=== PATIENT | female | born 1960 | race African-American/Black ===

== ENCOUNTER 2017-11-28 02:42 | Emergency (ER) | payer MEDICARE, OTHER ==
[~2017-11-28] VITALS: Ht 157.5 cm; Wt 69.2 kg
[~2017-11-28 02:42] MED LIST: 1-ME1LIQ PO; ALPR.25 PO; GABA100C4 PO; NOVOLOGSS SQ; ZOCO40TA PO
[2017-11-28 02:46] VITALS: BP 127/60; PULSE 104; RESP 18; TEMP 98.4; O2SAT 99
[2017-11-28 02:57] VITALS: BP 127/60; PULSE 104; RESP 18; TEMP 98.4; O2SAT 99
[2017-11-28] MEDS ORDERED: RESP: ALBUTEROL 2.5 MG/IPRATROPIUM 0.5 MG NEB (SCH) NEB ONE (03:15)
--- NOTE | 2017-11-28 03:17 | PD ---
HPI Chief Complaint: Cold / Flu Symptoms Time Seen by Provider: 02:56 Travel History International Travel<30 days: No Contact w/Intl Traveler<30days: No History of Present Illness HPI This is a 57-year-old female who presents to the emergency department with 1 hour of cough, constant, severe, associated with some rhinorrhea productive with white sputum. She denies any fevers or chills. She says this came on all of a sudden in the middle the night. She was feeling fine yesterday. She denies any chest pain and denies any leg swelling. She has a history of chronic kidney disease but denies any history of lung disease. PFSH Past Medical History Hx Anticoagulant Therapy: No Arthritis: Yes (right hip) Autoimmune Disease: No Anxiety: Yes Depression: No Cancer: No Cardiovascular Problems: Yes High Cholesterol: Yes Chemotherapy: No Diabetes: Yes Endocrine: Yes GERD: Yes Hepatitis: No Hiatal Hernia: No Hypertension: Yes Immune Disorder: No Kidney Stones: Yes (over 30 years ago) Musculoskeletal: Yes Psychiatric: Yes Respiratory: No Thyroid Disease: No Tubal Ligation: Yes Past Surgical History Gynecologic Surgery: Yes (total hysterectomy) Hysterectomy: No Pacemaker: No Social History Alcohol Use: No Tobacco Use: No Substance Use: No Allergies-Medications (Allergen,Severity, Reaction): Coded Allergies: ibuprofen (Unverified Allergy, Mild, Itching, 03/02/17) naproxen (Unverified Allergy, Mild, Itching, 03/02/17) *MDRO Multi-Drug Resistant Organism (Verified Adverse Reaction, Unknown, 05/27/15) 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 MRSA PCR Screen negative 05/26/15. Reported Meds & Prescriptions Reported Meds & Active Scripts Active Reported Lisinopril 5 Mg Tab 5 Mg PO DAILY Esomeprazole DR 40 Mg Capdr 40 Mg PO DAILY Januvia (Sitagliptin Phosphate) 50 Mg Tab 50 Mg PO DAILY Multiple Vitamin (Multivitamin with Minerals) 1 Each Tablet 1 Tab PO DAILY Amlodipine (Amlodipine Besylate) 10 Mg Tab 10 Mg PO DAILY Lyrica (Pregabalin) 100 Mg Cap 100 Mg PO BID Aspirin 81 (Aspirin) 81 Mg Tabdr 81 Mg PO DAILY Review of Systems Except as stated in HPI: all other systems reviewed are Neg Physical Exam Narrative GENERAL: Somnolent but awakens to answer questions SKIN: Focused skin assessment warm and dry. HEAD: Atraumatic. Normocephalic. EYES: Pupils equal and round. No injection or drainage. ENT: Moist mucous membranes NECK: Trachea midline. CARDIOVASCULAR: Regular rate and rhythm. No murmur appreciated. RESPIRATORY: Mild diffuse wheezing GASTROINTESTINAL: Abdomen soft, non-tender, nondistended. MUSCULOSKELETAL: No obvious deformities. NEUROLOGICAL: Awake and alert. No obvious cranial nerve deficits. Moving all extremities. PSYCHIATRIC: Appropriate mood and affect; insight and judgment normal. Data Data Last Documented VS Vital Signs Date Time Temp Pulse Resp B/P (MAP) Pulse Ox O2 Delivery O2 Flow Rate FiO2 11/28/17 03:48 99 20 97 Room Air 11/28/17 02:57 98.4 127/60 (82) Orders Orders Complete Blood Count With Diff (11/28/17 03:03) Comprehensive Metabolic Panel (11/28/17 03:03) ^ Insert Iv (11/28/17 03:03) Chest, Pa & Lat (11/28/17 ) Albuterol-Ipratropium Neb (Duoneb Neb) (11/28/17 03:15) B-Type Natriuretic Peptide (11/28/17 03:04) Labs Laboratory Tests Test 11/28/17 03:15 White Blood Count 8.4 TH/MM3 Red Blood Count 3.16 MIL/MM3 Hemoglobin 8.1 GM/DL Hematocrit 24.0 % Mean Corpuscular Volume 76.1 FL Mean Corpuscular Hemoglobin 25.7 PG Mean Corpuscular Hemoglobin Concent 33.8 % Red Cell Distribution Width 15.9 % Platelet Count 176 TH/MM3 Mean Platelet Volume 9.9 FL Neutrophils (%) (Auto) 62.6 % Lymphocytes (%) (Auto) 24.2 % Monocytes (%) (Auto) 9.9 % Eosinophils (%) (Auto) 2.9 % Basophils (%) (Auto) 0.4 % Neutrophils # (Auto) 5.4 TH/MM3 Lymphocytes # (Auto) 2.0 TH/MM3 Monocytes # (Auto) 0.8 TH/MM3 Eosinophils # (Auto) 0.2 TH/MM3 Basophils # (Auto) 0.0 TH/MM3 CBC Comment DIFF FINAL Differential Comment Blood Urea Nitrogen 36 MG/DL Creatinine 2.20 MG/DL Random Glucose 183 MG/DL Total Protein 7.4 GM/DL Albumin 3.3 GM/DL Calcium Level 8.2 MG/DL Alkaline Phosphatase 71 U/L Aspartate Amino Transf (AST/SGOT) 26 U/L Alanine Aminotransferase (ALT/SGPT) 28 U/L Total Bilirubin 0.2 MG/DL Sodium Level 142 MEQ/L Potassium Level 4.9 MEQ/L Chloride Level 113 MEQ/L Carbon Dioxide Level 22.8 MEQ/L Anion Gap 6 MEQ/L Estimat Glomerular Filtration Rate 28 ML/MIN B-Type Natriuretic Peptide 92 PG/ML MDM Medical Decision Making Medical Screen Exam Complete: Yes Emergency Medical Condition: Yes Interpretation(s) afebrile, mild tachycardia, normotensive anemia renal insufficiency similar to prior bnp normal cxr no acute process Differential Diagnosis Pneumonia, upper respiratory infection, acute asthma exacerbation, bronchitis Narrative Course This is a 57-year-old female who presents to the emergency department with onset of cough that started this evening associated with some nasal congestion. Patient was given a bronchodilator treatment. Labs were obtained which are consistent with prior. Chest x-ray is negative for pneumonia. Patient feels much better after bronchodilator treatment. She will be discharged with albuterol and codeine in the setting of likely bronchitis. Otherwise she is nontoxic appearing and appropriate for outpatient management. Diagnosis Primary Impression: Bronchitis Patient Instructions: General Instructions Additional Instructions: If you develop severe chest pain, shortness of breath, sweating, lightheadedness , dizziness or difficulty breathing return to the emergency department immediately. Followup with your primary care physician in 2-3 days if your symptoms are not resolved. Med/Other Pt SpecificInfo: Prescription(s) given Scripts Promethazine-Codeine Liq (Promethazine-Codeine Liq) 6.25-10 Mg/5 Ml Syrp 5 ML PO Q6H Y for COUGH AND/OR COLD SYMPTOMS, #50 ML 0 Refills Prov: Kathie Cuellar MD 11/28/17 Albuterol 8.5 GM Inh (Proair Hfa 8.5 GM Inh) 90 Mcg/Act Aer 2 PUFF INH Q4-6H Y for SHORTNESS OF BREATH, #1 INHALER 0 Refills 108 mcg/actuation Prov: Kathie Cuellar MD 11/28/17 Disposition: 01 DISCHARGE HOME Condition: Stable Kathie Cuellar MD November 28, 2017 03:17
[2017-11-28] MEDS ORDERED: LYRI100C PO (03:28)
[2017-11-28] MEDS ORDERED: AMLO10TA2 PO (03:28)
[2017-11-28] MEDS ORDERED: NO ITAB PO (03:28)
[2017-11-28] MEDS ORDERED: LISI-519 PO (03:28)
[2017-11-28] MEDS ORDERED: ESOM1CAP16 PO (03:28)
[2017-11-28] MEDS ORDERED: SITA50 PO (03:28)
[2017-11-28] MEDS ORDERED: ASPI1TAB57 PO (03:28)
[2017-11-28 03:41] LABS: AUTOMATED NEUTROPHIL # 5.4 TH/MM3 (1.8-7.7); BASOPHIL % 0.4 % (0.0-2.0); EOSINOPHIL # 0.2 TH/MM3 (0-0.4); EOSINOPHIL % 2.9 % (0.0-4.0); HEMOGLOBIN 8.1 GM/DL (11.6-15.3); LYMPH % 24.2 % (9.0-44.0); MEAN CELL VOLUME 76.1 FL (80.0-100.0); MEAN CORPUSCULAR HEMOGLOBIN 25.7 PG (27.0-34.0); MEAN CORPUSCULAR HGB CONC 33.8 % (32.0-36.0); MEAN PLATELET VOLUME 9.9 FL (7.0-11.0); MONO % 9.9 % (0.0-8.0); MONOCYTE # 0.8 TH/MM3 (0-0.9); NEUT % 62.6 % (16.0-70.0); PLATELET COUNT 176 TH/MM3 (150-450); RED BLOOD COUNT 3.16 MIL/MM3 (4.00-5.30); RED CELL DISTRIBUTION WIDTH 15.9 % (11.6-17.2); WHITE BLOOD COUNT 8.4 TH/MM3 (4.0-11.0)
[2017-11-28 03:47] LABS: CHLORIDE 113 MEQ/L (98-107); SODIUM (NA) 142 MEQ/L (136-145)
[2017-11-28 03:48] VITALS: PULSE 99; RESP 20; O2SAT 97
[2017-11-28 03:52] LABS: ALBUMIN 3.3 GM/DL (3.4-5.0); BICARBONATE 22.8 MEQ/L (21.0-32.0); CALCIUM 8.2 MG/DL (8.5-10.1); GLUCOSE,RANDOM 183 MG/DL (74-106)
[2017-11-28 03:53] LABS: BLOOD UREA NITROGEN 36 MG/DL (7-18)
[2017-11-28 03:55] LABS: ALT (GPT) 28 U/L (10-53)
[2017-11-28 03:56] LABS: AST (GOT) 26 U/L (15-37); GLOMERULAR FILTRATION RATE 28 ML/MIN (>89)
[2017-11-28 03:57] LABS: TOTAL BILIRUBIN ADULT 0.2 MG/DL (0.2-1.0); TOTAL PROTEIN 7.4 GM/DL (6.4-8.2)
[2017-11-28 03:58] LABS: ALKALINE PHOSPHATASE 71 U/L (45-117)
--- NOTE | 2017-11-28 04:01 | RADRPT ---
EXAM DATE/TIME: 11/28/2017 03:06 [facility] COMPARISON: CHEST SINGLE AP, May 24, 2015, 11:27. INDICATIONS : Cough. MEDICAL HISTORY : Hypertension. Arthritis. Diabetes. SURGICAL HISTORY : Tubal ligation. Hysterectomy. ENCOUNTER: Initial ACUITY: 1 day PAIN SCORE: 0/10 LOCATION: Bilateral chest FINDINGS: PA and lateral views of the chest demonstrate the lungs to be symmetrically aerated without evidence of mass, infiltrate or effusion. The cardiomediastinal contours are unremarkable. Osseous structure s are intact. CONCLUSION: No acute disease. There is no evidence of pneumonia. Antonio Jasmine MD on November 28, 2017 at 3:58 Board Certified Radiologist. This report was verified electronically.
[2017-11-28] MEDS ORDERED: ALBUAER3 INH (04:35)
[2017-11-28] MEDS ORDERED: PROM6.256 PO (04:35)
[2017-11-28 04:45] VITALS: BP 126/74
== END 2017-11-28 04:45 | disposition home or self-care (01) ==
LOC: PHED 02:42
DX: J40 Bronchitis, not specified as acute or chronic (principal); I12.9 Hypertensive chronic kidney disease with stage 1 through stage 4 chronic kidney disease, or unspecified chronic kidney disease; E11.22 Type 2 diabetes mellitus with diabetic chronic kidney disease; N18.9 Chronic kidney disease, unspecified; E78.00 Pure hypercholesterolemia, unspecified; F41.9 Anxiety disorder, unspecified; K21.9 Gastro-esophageal reflux disease without esophagitis; M16.11 Unilateral primary osteoarthritis, right hip; R06.2 Wheezing
CPT/HCPCS: 71046; 80053; 83880; 85025; 94664; 99284